=== PATIENT | female | born 1950 | race African-American/Black ===

== ENCOUNTER 2023-03-25 16:02 | Emergency (ER) | payer MEDICAID, OTHER ==
[~2023-03-25] VITALS: Ht 160 cm; Wt 63.0 kg
[~2023-03-25 16:02] MED LIST: CEPH500C2 MT
[2023-03-25 16:22] VITALS: BP 169/76
[2023-03-25 16:29] LABS: BASOPHILS % 0.4 % (0.0-2.0); EOSINOPHILS % 0.4 % (0.0-5.0); HEMOGLOBIN. 11.1 g/dL (12.0-16.0); LYMPHOCYTES % 23.8 % (20.0-50.0); MEAN CORPUSCULAR HEMOGLOBIN 29.7 pg (28.0-32.0); MEAN CORPUSCULAR VOLUME 90.7 fL (81.0-99.0); MEAN PLATELET VOLUME 9.7 fl (7.4-10.4); MONOCYTES % 13.8 % (2.0-8.0); NEUTROPHILS % 61.6 % (40.0-76.0); PLATELET 279 x1000/uL (130-400); RED BLOOD CELL COUNT 3.75 mill/uL (4.2-5.4); RED CELL DISTRIBUTION WIDTH 14.4 % (11.6-14.6)
[2023-03-25 16:37] LABS: CHLORIDE 100 mEq/L (98-107)
== END 2023-03-25 23:16 | disposition left against medical advice (07) ==
LOC: ER 16:35
DX: Z53.21 Procedure and treatment not carried out due to patient leaving prior to being seen by health care provider (principal)
CPT/HCPCS: 36415; 80053; 85025; 99281

== ENCOUNTER 2024-03-26 10:24 | Emergency (ER) | payer OTHER ==
[~2024-03-26] VITALS: Ht 160 cm; Wt 65.0 kg
[2024-03-26 10:31] VITALS: O2SAT 98
[2024-03-26] MEDS ORDERED: OCUFLX LEFTEYE (12:35)
[2024-03-26 13:00] VITALS: BP 144/87; PULSE 77; RESP 18; TEMP 98
== END 2024-03-26 14:36 | disposition home or self-care (01) ==
LOC: ER 10:24
DX: H10.32 Unspecified acute conjunctivitis, left eye (principal)
CPT/HCPCS: 99283